=== PATIENT | male | born 1960 | race Caucasian/White ===

== ENCOUNTER 2019-08-04 10:49 | Day surgery (SDC) | payer OTHER ==
[~2019-08-04 10:49] MED LIST: BUPIVACAINE HCL 0.5% (5MG/ML) PF 10ML VIAL IV ONE; LACTATED RINGERS 1,000 ML IV.SOLN IV ONE; LIDOCAINE HCL 1% PF 300MG/30ML VIAL ONE; LIDOCAINE HCL 2% PF 100MG/5ML VIAL IJ ONE; MIDAZOLAM HCL 2 MG/2 ML VIAL ONE; PROPOFOL 200 MG/20 ML VIAL IV ONE; fentaNYL CITRATE/PF 100 MCG/2 ML INJ. ONE; methylPREDNISolone ACETATE 80 MG/ML VIAL IM ONE
== END 2019-08-04 13:55 | disposition home or self-care (01) ==
LOC: OPSURG 10:49
DX: M47.814 Spondylosis without myelopathy or radiculopathy, thoracic region (principal)
CPT/HCPCS: 64633; 64634; J1040; J2001; J2250; J2704; J3010; J3490; J7120

== ENCOUNTER 2019-08-18 07:51 | Day surgery (SDC) | payer OTHER ==
[2019-08-18] MEDS ORDERED: fentaNYL CITRATE/PF 100 MCG/2 ML INJ. ONE (08:48)
[2019-08-18] MEDS ORDERED: PROPOFOL 200 MG/20 ML VIAL IV ONE (08:48)
[2019-08-18] MEDS ORDERED: LIDOCAINE HCL 1% PF 300MG/30ML VIAL ONE (08:48)
[2019-08-18] MEDS ORDERED: MIDAZOLAM HCL 2 MG/2 ML VIAL ONE (08:48)
[2019-08-18] MEDS ORDERED: LIDOCAINE HCL 2% PF 100MG/5ML VIAL IJ ONE (08:48)
[2019-08-18] MEDS ORDERED: methylPREDNISolone ACETATE 80 MG/ML VIAL IM ONE (08:48)
[2019-08-18] MEDS ORDERED: LACTATED RINGERS 1,000 ML IV.SOLN IV ONE (08:48)
[2019-08-18] MEDS ORDERED: MORPHINE SULFATE 10 MG/ML VIAL ONE (08:48)
[2019-08-18] MEDS ORDERED: BUPIVACAINE HCL 0.5% (5MG/ML) PF 10ML VIAL IV ONE (08:48)
== END 2019-08-18 11:15 | disposition home or self-care (01) ==
LOC: OPSURG 07:51
DX: M47.814 Spondylosis without myelopathy or radiculopathy, thoracic region (principal); M54.6 Pain in thoracic spine
CPT/HCPCS: 64633; 64634; J1040; J2001; J2250; J2270; J2704; J3010; J3490; J7120